=== PATIENT | male | born 1990 | race Caucasian/White ===

== ENCOUNTER 2020-11-07 22:01 | Emergency (ER) | payer SELFPAY ==
[2020-11-07] MEDS ORDERED: Lidocaine 1% w/Epinephrine 1:100K 30 ML VIAL ONE (22:15)
[2020-11-07] MEDS ORDERED: TETANUS, DIPHTHERIA TOX,ADULT (TDVAX) 0.5 ML VIAL IM ONE (22:23)
[2020-11-07] MEDS ORDERED: Bacitracin 1 PK ONE (23:15)
== END 2020-11-07 22:30 | disposition home or self-care (01) ==
LOC: NAV ERS 22:01
DX: S01.511A Laceration without foreign body of lip, initial encounter (principal); Z23 Encounter for immunization; E78.00 Pure hypercholesterolemia, unspecified; F17.210 Nicotine dependence, cigarettes, uncomplicated; X99.8XXA Assault by other sharp object, initial encounter; Z79.899 Other long term (current) drug therapy
CPT/HCPCS: 40650; 90471; 90714